=== PATIENT | male | born 1980 | race Caucasian/White ===

== ENCOUNTER 2017-05-30 04:25 | Emergency (ER) | payer MEDICAID ==
[2017-05-30 04:26] VITALS: BMI 30.8
[2017-05-30 04:47] VITALS: TEMP 97.1
[2017-05-30] MEDS ORDERED: Sodium Chloride 0.9% 1,000 ML IV STA (04:56)
[2017-05-30 05:20] LABS: ALB/GLOB RATIO 1.5 (1.1-1.8); ALBUMIN 4.4 g/dL (3.0-4.8); ALT/SGPT 57 U/L (7-56); AST/SGOT 30 U/L (17-59); BLOOD UREA NITROGEN 11 mg/dL (7-21); CALCIUM 8.9 mg/dL (8.4-10.5); GFR AFRICAN-AMERICAN > 60; GFR NON-AFRICAN AMERICAN > 60; LIPASE 338 U/L (23-300)
[2017-05-30 05:32] LABS: BASO # 0.01 K/mm3 (0.0-2.0); BASO % 0.2 % (0.0-3.0); EOS # 0.3 (0.0-0.7); EOS % 4.9 % (1.5-5.0); GRAN # 1.92 (1.4-6.5); GRAN % 34.9 % (50.0-68.0); HEMOGLOBIN 15.1 g/dL (14.0-18.0); LYMPH # 2.7 (1.2-3.4); LYMPH % 49.7 % (22.0-35.0); MEAN CELL VOLUME 92.8 fl (80.0-105.0); MEAN CORPUSCULAR HEMOGLOBIN 31.1 pg (25.0-35.0); MEAN CORPUSCULAR HGB CONC 33.5 g/dl (31.0-37.0); MEAN PLATELET VOLUME 10.5 fl (7.0-11.0); MONO # 0.6 (0.1-0.6); MONO % 10.3 % (1.0-6.0); RBC 4.86 10^6/uL (3.5-6.1); RED CELL DISTRIBUTION WIDTH 12.6 % (11.5-14.5); WHITE BLOOD COUNT 5.5 10^3/ul (4.5-11.0)
--- NOTE | 2017-05-30 05:36 | ED PDOC ---
Arrival/HPI - General Chief Complaint: Abdominal Pain Time Seen by Provider: 05/30/17 04:49 Historian: Patient - History of Present Illness Narrative History of Present Illness (Text): 05/30/17 04:42 A 37 year old male, with no significant past medical history, presents to the emergency department complaining of right flank and LLQ pain. Patient reports pain began around 01:00 this morning. He mentions also having 2 episodes of vomiting and has difficulty urinating. Patient denies any fever, nausea, or any other complaints at this time. No PMD Time/Duration: Other (01:00 this morning) Symptom Onset: Sudden Symptom Course: Unchanged Past Medical History - Provider Review Nursing Documentation Reviewed: Yes - Past Medical History Past Medical History: No Previous - Psychiatric Hx Depression: No Hx Emotional Abuse: No Hx Physical Abuse: No Hx Substance Use: No - Past Surgical History Past Surgical History: No Previous - Suicidal Assessment Feels Threatened In Home Enviroment: No Family/Social History - Physician Review Nursing Documentation Reviewed: Yes Family/Social History: No Known Family HX Smoking Status: Light Smoker < 10 Cigarettes Daily Hx Alcohol Use: Yes Frequency of alcohol use: Socially Hx Substance Use: No Allergies/Home Meds Allergies/Adverse Reactions: Allergies No Known Allergies Allergy (Unverified 05/30/17 04:56) Review of Systems - Physician Review All systems were reviewed & negative as marked: Yes - Review of Systems Constitutional: absent: Fevers Gastrointestinal: Abdominal Pain (LLQ pain), Vomiting (2 episodes). absent: Nausea Genitourinary Male: Urinary Output Changes (difficulty urinating) Musculoskeletal: Other (right flank pain) Physical Exam Vital Signs Reviewed: Yes Vital Signs Temp Pulse Resp BP Pulse Ox 05/30/17 06:33 73 15 145/83 99 05/30/17 04:40 97.1 F L 70 18 144/86 97 Temperature: Afebrile Blood Pressure: Normal Pulse: Regular Respiratory Rate: Normal Appearance: Positive for: Well-Appearing Pain Distress: None Mental Status: Positive for: Alert and Oriented X 3 - Systems Exam Head: Present: Atraumatic, Normocephalic Pupils: Present: PERRL Extroacular Muscles: Present: EOMI Conjunctiva: Present: Normal Mouth: Present: Moist Mucous Membranes Neck: Present: Normal Range of Motion Respiratory/Chest: Present: Clear to Auscultation, Good Air Exchange. No: Respiratory Distress, Accessory Muscle Use Cardiovascular: Present: Regular Rate and Rhythm, Normal S1, S2. No: Murmurs Abdomen: Present: Other (LLQ pain) Back: Present: Other (right flank pain) Upper Extremity: Present: Normal Inspection. No: Cyanosis, Edema Lower Extremity: Present: Normal Inspection. No: Edema Neurological: Present: GCS=15, CN II-XII Intact, Speech Normal Skin: Present: Warm, Dry, Normal Color. No: Rashes Psychiatric: Present: Alert, Oriented x 3, Normal Insight, Normal Concentration Medical Decision Making ED Course and Treatment: 05/30/17 04:45 Impression: 37 year old male with right flank and LLQ pain. Plan: -- Abd/Pelvis CT -- Labs -- Toradol -- IV Fluids -- Urine Culture -- Urinalysis -- Reassess and disposition Progress Notes: - Lab Interpretations Lab Results: 05/30/17 04:45 05/30/17 04:45 Lab Results 05/30/17 04:45: Sodium 140, Potassium 4.3, Chloride 103, Carbon Dioxide 28, Anion Gap 14, BUN 11, Creatinine 0.9, Est GFR ( Amer) > 60, Est GFR (Non- Af Amer) > 60, Random Glucose 190 H, Calcium 8.9, Total Bilirubin 0.4, AST 30, ALT 57 H, Alkaline Phosphatase 56, Total Protein 7.2, Albumin 4.4, Globulin 2.8 , Albumin/Globulin Ratio 1.5, Lipase 338 H 05/30/17 04:45: WBC 5.5 D, RBC 4.86, Hgb 15.1, Hct 45.1, MCV 92.8, MCH 31.1, MCHC 33.5, RDW 12.6, Plt Count 258, MPV 10.5, Gran % 34.9 L, Lymph % (Auto) 49.7 H, Charles % (Auto) 10.3 H, Eos % (Auto) 4.9, Baso % (Auto) 0.2, Gran # 1.92, Lymph # 2.7, Charles # 0.6, Eos # 0.3, Baso # 0.01 I have reviewed the lab results: Yes - RAD Interpretation Radiology Orders: 05/30/17 04:56 ABD & PELVIS W/O PO OR IV CONT [CT] Stat - Medication Orders Current Medication Orders: Oxycodone HCl (Oxycodone Immediate Release Tab) 5 mg PO STAT STA Stop: 05/30/17 06:35 Discontinued Medications Sodium Chloride (Sodium Chloride 0.9%) 1,000 mls @ 1,000 mls/hr IV .Q1H STA Stop: 05/30/17 05:55 Last Admin: 05/30/17 05:11 Dose: 1,000 mls/hr eMAR Start Stop Document 05/30/17 05:11 RD (Rec: 05/30/17 05:11 RD [id number]) Intravenous Solution Start Date 05/30/17 Start Time 05:11 End Date 05/30/17 End time 06:11 Total Infusion Time 60 Ketorolac Tromethamine (Toradol) 30 mg IVP STAT STA Stop: 05/30/17 04:57 Last Admin: 05/30/17 05:11 Dose: 30 mg MAR Pain Assessment Document 05/30/17 05:11 RD (Rec: 05/30/17 05:11 RD [id number]) Pain Reassessment Is this a pain reassessment? No Sleep Is patient sleeping during reassessment? No Presence of Pain Presence of Pain Yes IVP Administration Document 05/30/17 05:11 RD (Rec: 05/30/17 05:11 RD [id number]) Charges for Administration # of IVP Administrations 1 - Scribe Statement The provider has reviewed the documentation as recorded by the Bingibreginald Mar Provider Scribe Attestation: All medical record entries made by the Scribe were at my direction and personally dictated by me. I have reviewed the chart and agree that the record accurately reflects my personal performance of the history, physical exam, medical decision making, and the department course for this patient. I have also personally directed, reviewed, and agree with the discharge instructions and disposition. Disposition/Present on Arrival - Present on Arrival Any Indicators Present on Arrival: No History of DVT/PE: No History of Uncontrolled Diabetes: No Urinary Catheter: No History of Decub. Ulcer: No History Surgical Site Infection Following: None - Disposition Have Diagnosis and Disposition been Completed?: Yes Diagnosis: Kidney stone Disposition: HOME/ ROUTINE Disposition Time: 06:30 Patient Problems: Current Active Problems Problem Status Onset Kidney stone Acute Condition: IMPROVED Discharge Instructions (ExitCare): Kidney Stones (ED), How to Strain Your Urine (ED) Additional Instructions: Thank you for letting us take care of you today. The emergency medical care you received today was directed at your acute symptoms. If you were prescribed any medication, please fill it and take as directed. It may take several days for your symptoms to resolve. Return to the Emergency Department if your symptoms worsen, do not improve, or if you have any other problems. Please contact your doctor or call one of the physicians/clinics you have been referred to that are listed on the Patient Visit Information form that is included in your discharge packet. Bring any paperwork you were given at discharge with you along with any medications you are taking to your follow up visit. Our treatment cannot replace ongoing medical care by a primary care provider (PCP) outside of the emergency department. Thank you for allowing the [facility] team to be part of your care today. Return to the emergency room if you have any complaints. Followup with the urologist in 2-3 days for re-evaluation and further management. Prescriptions: Ciprofloxacin [Cipro] 500 mg PO BID #10 tab Tamsulosin [Flomax] 0.4 mg PO DAILY #7 cap traMADol [Ultram] 50 mg PO Q8 PRN #15 tab PRN Reason: Pain, Severe (8-10) Referrals: Stephon Garnica MD [Staff Provider] - Follow up with primary Forms: [employer] (Lao)
--- NOTE | 2017-05-30 06:13 | CT ---
EXAM: CT Abdomen and Pelvis Without Intravenous Contrast CLINICAL HISTORY: 37 years old, male; Pain; Abdominal pain; Flank; Left; Additional info: Llq/l flank pain TECHNIQUE: Axial computed tomography images of the abdomen and pelvis without intravenous contrast. All CT scans at this facility use one or more dose reduction techniques, viz.: automated exposure control; ma/kV adjustment per patient size (including targeted exams where dose is matched to indication; i.e. head); or iterative reconstruction technique. 676 images are submitted. Coronal and sagittal reformatted images were created and reviewed. COMPARISON: No relevant prior studies available. FINDINGS: Limitations: Absence of IV contrast decreases sensitivity for detecting solid organ and vascular abnormality and injury. Lower thorax: There is bibasilar atelectasis. Small hiatal hernia. ABDOMEN: Liver: Enlarged heterogeneous fatty liver. Gallbladder and bile ducts: Unremarkable. No ductal dilation. Pancreas: Unremarkable. No ductal dilation. Spleen: Unremarkable. No splenomegaly. Adrenals: Unremarkable. No mass. Kidneys and ureters: Left perinephric inflammatory change with moderate left hydroureteronephrosis and a 2-3 mm left UVJ stone seen on image 175 series 3 representing acute obstructive uropathy. Nonobstructive left renal stone. Stomach and bowel: Diverticulosis. There is stool like appearance to the distal small bowel. This may represent slow transit. No obstruction. No mucosal thickening. Appendix: Normal appendix. PELVIS: Bladder: Partially decompressed bladder with bladder wall thickening. Correlation with urinalysis is recommended only if clinical cystitis is suspected. Reproductive: Prostate gland is seen. ABDOMEN and PELVIS: Intraperitoneal space: Unremarkable. No free air. No significant fluid collection. Bones/joints: No acute fracture. No dislocation. Soft tissues: Bilateral inguinal herniation of fat right more than left. There is a fat-containing umbilical hernia. Vasculature: The aorta is normal in caliber and there are no tomás-aortic collections. Lymph nodes: Unremarkable. No enlarged lymph nodes. IMPRESSION: 1. Left perinephric inflammatory change with moderate left hydroureteronephrosis and a 2-3 mm left UVJ stone seen on image 175 series 3 representing acute obstructive uropathy.
[2017-05-30 06:34] VITALS: BP 145/83; PULSE 73; RESP 15; O2SAT 99
[2017-05-30] MEDS ORDERED: oxyCODONE 5 mg Immediate Release Tab PO STA (06:34)
[2017-05-30 06:54] LABS: PH,URINE 5.5 (4.7-8.0); URINE BILIRUBIN NEGATIVE (NEGATIVE); URINE BLOOD MODERATE (NEGATIVE); URINE GLUCOSE (UA) NEGATIVE (NEGATIVE); URINE LEUKOCYTE ESTERASE NEGATIVE Leu/uL (NEGATIVE); URINE NITRATE NEGATIVE (NEGATIVE); URINE PROTEIN TRACE mg/dL (<30 mg/dL); URINE UROBILINOGEN 0.2 E.U./dL (<1 E.U./dL)
[2017-05-30 06:56] LABS: URINE APPEARANCE CLEAR (CLEAR); URINE COLOR YELLOW (YELLOW)
[2017-05-30 07:07] LABS: URINE EPITHELIAL CELLS 0 - 2 /hpf (0-5); URINE WBC 0 - 2 /hpf (0-6)
== END 2017-05-30 06:47 | disposition home or self-care (01) ==
LOC: ED 04:25
DX: N20.0 Calculus of kidney (principal)
CPT/HCPCS: 74176; 80053; 81001; 83690; 85025; 87086; 96361; 96374; 99283; J1885; J7040